=== PATIENT | female | born 1980 ===

== ENCOUNTER 2016-08-09 09:58 | Observation (INO) | payer OTHER ==
--- NOTE | 2016-08-09 10:40 | C.PDOC ---
History Of Present Illness 36 year old patient presents to the ED complaining of persistent abdominal pain for the past 3 days. She complains of constant epigastric and RUQ pain that radiates to the right flank. Patient states the pain is worse after eating. Patient also complains of nausea. Patient had a Tmax fever of 104 2 days ago which has now resolved. She was evaluated at [facility] for generalized abdominal pain. Patient's CT showed an ovarian cyst. Patient is s/p a pelvic ultrasound that showed "ruptured cyst with ascites." The pain resolved with Percocet. Initially, the patient had lower abdominal pain which is now much improved. The epigastric pain is persistent. Patient denies fever, vomiting , diarrhea, headache or dizziness. PERSIST ABD PAIN X 3 DAYS. EPIG/RUQ, RADIATION R FLANK CONSTANT. WORSE @ EATING +NAUSEA. TM 104 2 DAYS AGO, NOW RESOLVED. EVAL @ [facility] FOR GEN ABD PAIN. PS CT = OVARIAN CYST. S/P PELVIC US = "RUPTURED CYST W ASCITES". PAIN RESOLVED W PERCOCET. INITIALLY W LOWER ABD PAIN NOW MUCH IMPROVED. EPIG PAIN PERSIST. EXAM MILD DIST NONTOXIC ABD +EPIG/RUQ TEND MILD SOFT NO R/G REMAINDER NEG Time Seen by Provider: 08/09/16 10:22 Chief Complaint (Nursing): Abdominal Pain History Per: Patient History/Exam Limitations: no limitations Onset/Duration Of Symptoms: Days (3) Current Symptoms Are (Timing): Still Present Context: Other Severity: Mild Pain Scale Rating Of: 3 Location Of Pain/Discomfort: RUQ, Epigastric Radiation Of Pain To:: Flank (right) Quality Of Discomfort: "Pain" Associated Symptoms: Nausea Alleviating Factors: None Last Bowel Movement: Today Recent travel outside of the [place]: No Abnormal Vaginal Bleeding: No Past Medical History Reviewed: Historical Data, Nursing Documentation, Vital Signs Vital Signs: Last Vital Signs Temp 99.1 F 08/09/16 16:21 Pulse 86 08/09/16 16:21 Resp 17 08/09/16 16:21 BP 117/83 08/09/16 16:21 Pulse Ox 100 08/09/16 16:32 - Medical History PMH: Back Problems Family History: States: Unknown Family Hx - Social History Hx Tobacco Use: No Hx Alcohol Use: No Hx Substance Use: No - Immunization History Hx Tetanus Toxoid Vaccination: No Hx Influenza Vaccination: No Hx Pneumococcal Vaccination: No Review Of Systems Except As Marked, All Systems Reviewed And Found Negative. Constitutional: Negative for: Fever Gastrointestinal: Positive for: Nausea, Abdominal Pain (epigastric and RUQ). Negative for: Vomiting, Diarrhea Musculoskeletal: Positive for: Other (right flank) Neurological: Negative for: Headache, Dizziness Physical Exam - Physical Exam Appears: Non-toxic, Other (mild distress) Skin: Warm, Dry Head: Atraumatic, Normacephalic Eye(s): bilateral: Normal Inspection, EOMI Oral Mucosa: Moist Neck: Normal ROM, Supple Chest: Symmetrical Cardiovascular: Rhythm Regular Respiratory: Normal Breath Sounds, No Rales, No Rhonchi, No Wheezing Gastrointestinal/Abdominal: Soft, Tenderness (mild to epigastric and RUQ), No Guarding, No Rebound Back: Normal Inspection Extremity: Normal ROM Neurological/Psych: Oriented x3 Gait: Steady ED Course And Treatment - Laboratory Results Result Diagrams: 08/09/16 10:56 08/09/16 10:56 Urine POC: Negative ECG: Interpreted By Me ECG Rhythm: Sinus Rhythm ECG Interpretation: Normal Interpretation Of ECG: TWI III Rate From EC O2 Sat by Pulse Oximetry: 100 (room air) Pulse Ox Interpretation: Normal ED OBSERVATION Discharge: Yes Date of observation admission: 08/09/16 Time of observation admission: 10:45 - Observation admission statement Patient is being placed in observation because:: ABD PAIN - Goals of Observation Goals of observation are:: NEG ACUTE ABD, SX IMPROVE - Progress Note Progress Note: 08/09/16 16:11 APPEARS COMFORTABLE NAD. DENIES PRIOR HO ENDOMETRIOSIS. NO S/S ACUTE ABD. ADVISED FU OBGYN AND PMD Disposition Counseled Patient/Family Regarding: Studies Performed, Diagnosis, Need For Followup - Disposition Disposition: HOME/ ROUTINE Disposition Time: 16:32 Condition: IMPROVED - Clinical Impression Clinical Impression: Abdominal pain, Ovarian cyst - Scribe Statement The provider has reviewed the documentation as recorded by the Dinah Sheridan Provider Attestation: All medical record entries made by the Basiaibe were at my direction and personally dictated by me. I have reviewed the chart and agree that the record accurately reflects my personal performance of the history, physical exam, medical decision making, and the department course for this patient. I have also personally directed, reviewed, and agree with the discharge instructions and disposition.
[2016-08-09] MEDS ORDERED: Sodium Chloride 0.9% 1,000 ML IV ONE (10:48)
[2016-08-09 11:03] LABS: BASO % 0.3 % (0.0-2.0); EOS # 0.1 K/uL (0.0-0.7); EOS % 1.1 % (0.0-4.0); HEMATOCRIT 38.4 % (34.0-47.0); LYMPH # 1.3 K/uL (1.0-4.3); MEAN CELL VOLUME 89.7 fL (81.0-99.0); MEAN CORPUSCULAR HEMOGLOBIN 29.5 pg (27.0-31.0); MEAN CORPUSCULAR HGB CONC 32.9 g/dL (33.0-37.0); MEAN PLATELET VOLUME 8.1 fL (7.2-11.7); MONO # 0.6 K/uL (0.0-0.8); MONO % 8.8 % (0.0-10.0); NRBC % 0.1 % (0.0-2.0); RED CELL DISTRIBUTION WIDTH 12.2 % (11.5-14.5); WHITE BLOOD COUNT 6.5 K/uL (4.8-10.8)
[2016-08-09 11:09] LABS: RBC URINE 9 /hpf (0-3); URINE BACTERIA RARE (<OCC); URINE BILIRUBIN NEGATIVE (NEGATIVE); URINE BLOOD 1+ (NEGATIVE); URINE COLOR Yellow (YELLOW); URINE GLUCOSE (UA) NORMAL (Normal); URINE KETONE NEGATIVE (NEGATIVE); URINE LEUKOCYTE ESTERASE NEG Leu/uL (Negative); URINE PROTEIN NEGATIVE (NEGATIVE); URINE UROBILINOGEN NORMAL mg/dL (0.2-1.0); WBC URINE 3 /hpf (0-5)
[2016-08-09 11:12] LABS: CHLORIDE 97 mmol/L (98-107); POTASSIUM 4.1 mmol/L (3.6-5.2); SODIUM 140 mmol/L (132-148)
[2016-08-09 11:14] LABS: GFR AFRICAN-AMERICAN > 60
[2016-08-09 11:15] LABS: ALKALINE PHOSPHATASE 81 U/L (38-126); ALT/SGPT 59 U/L (9-52); AST/SGOT 41 U/L (14-36); BILIRUBIN,TOTAL 1.3 mg/dL (0.2-1.3); BLOOD UREA NITROGEN 8 mg/dL (7-17); CALCIUM 8.8 mg/dl (8.6-10.4); CARBON DIOXIDE 28 mmol/L (22-30); GLUCOSE,RANDOM 98 mg/dL (65-105); TOTAL PROTEIN 8.4 g/dL (6.3-8.3)
--- NOTE | 2016-08-09 11:18 | RAD ---
HISTORY: Abdominal pain. COMPARISON: No prior. TECHNIQUE: Chest PA and lateral FINDINGS: LUNGS: No active pulmonary disease. PLEURA: No significant pleural effusion identified. No pneumothorax apparent. CARDIOVASCULAR: Normal. OSSEOUS STRUCTURES: No significant abnormalities. VISUALIZED UPPER ABDOMEN: Normal. OTHER FINDINGS: None. IMPRESSION: No active disease. Concordant results with the preliminary interpretation rendered by the emergency department physician procedure.
[2016-08-09] MEDS ORDERED: Sodium Chloride 0.9% 1,000 ML ONE (11:45)
--- NOTE | 2016-08-09 13:22 | US ---
HISTORY: Abdominal pain. History of ruptured ovarian cysts. Menstrual status: Regular cycles LMP 07/31/2016 COMPARISON: 03/02/2014. TECHNIQUE: Transabdominal, transvaginal. Real -time technique with 2D, duplex and color Doppler. FINDINGS: UTERUS: Measures 4.4 x 6.9 cm. Normal in size and appearance. No fibroid or other mass lesion seen. ENDOMETRIUM: Measures 5.8 mm in diameter. No ultrasound findings to suggest gestational sac, fluid, debris, mass or polyp or other pathologic process within the endometrium. CERVIX: No cervical abnormality identified. RIGHT OVARY: Measures 1.6 x 3.7 cm. No solid mass. Normal flow. Multiple subcentimeter follicles. Dominant cyst 1.4 x 1.7 cm. LEFT OVARY: Measures 7.7 x 8.1 x 9.5 cm. No solid mass. Normal flow. Well-circumscribed exophytic mass left adnexa. Differential considerations include, exophytic debris laden cyst 4.5 x 7.9 x 7.9 cm. Alternatively this could represent "Chocolate cyst" . Clinically, is there a history of endometriosis? The findings conceivably represent large endometrioma. FREE FLUID: No significant free fluid noted. OTHER FINDINGS: None. IMPRESSION: Complex cysts, overall appearance of chocolate cyst left adnexa suggests endometrioma. Unremarkable uterus and endometrial echo complex. Unremarkable right ovary with multiple follicular cysts.
--- NOTE | 2016-08-09 13:23 | US ---
HISTORY: RUQ abd pain COMPARISON: 03/02/2014. TECHNIQUE: Sonographic evaluation of the right upper quadrant of the abdomen. FINDINGS: LIVER: Measures 18.2 cm in length. Patent portal vein. Portal venous flow: Hepatopetal. Unremarkeable echogenicity of the liver parenchyma. No mass. No intrahepatic bile duct dilatation. GALLBLADDER: Unremarkable. No gallstones. COMMON BILE DUCT: Measures 5.3 mm. No stones. No dilatation. PANCREAS: Unremarkable as visualized. No mass. No ductal dilatation. RIGHT KIDNEY: Measures 12.4 x 4.3 cm in length. Normal echogenicity. No calculus, mass, or hydronephrosis. AORTA: No aneurysmal dilatation. IVC: Unremarkable. OTHER FINDINGS: None . IMPRESSION: No acute findings related to/accounting for the clinical presentation. No significant interval change compared to the prior examination(s).
[2016-08-09] MEDS ORDERED: Iohexol 300 100 ML IJ ONE (14:19)
--- NOTE | 2016-08-09 16:17 | CT ---
PROCEDURE: CT Abdomen and Pelvis with contrast HISTORY: Abdominal pain. COMPARISON: August 09, 2016. Pelvic ultrasound TECHNIQUE: Contrast dose: 100 cc Omnipaque 350. Radiation dose: Total exam DLP = 747.44 mGy-cm. This CT exam was performed using one or more of the following dose reduction techniques: Automated exposure control, adjustment of the mA and/or kV according to patient size, and/or use of iterative reconstruction technique. FINDINGS: LOWER THORAX: Unremarkable. LIVER: Hepatic steatosis. No focal masses. No intrahepatic bile duct dilatation or perihepatic ascites. GALLBLADDER AND BILE DUCTS: Unremarkable. PANCREAS: Unremarkable. No gross lesion or ductal dilatation. SPLEEN: Top-normal spleen. Orthogonal measurements 8.1 x 11.2 cm ADRENALS: Unremarkable. No mass. KIDNEYS AND URETERS: Unremarkable. No hydronephrosis. No solid mass. VASCULATURE: Unremarkable. No aortic aneurysm. BOWEL: Unremarkable. No obstruction. No gross mural thickening. APPENDIX: The appendix is well visualized. The tip of the appendix is partially obscured by adjacent bowel. However the patient does not have right lower quadrant/ pelvic pain at the current time and does not have an elevated white count, information kindly provided by the attending physician in the emergency department. PERITONEUM: Unremarkable. No free fluid. No free air. LYMPH NODES: Unremarkable. No enlarged lymph nodes. BLADDER: Unremarkable. REPRODUCTIVE: Dominant left adnexal cyst 4.6 x 5.3 cm corresponding findings on recent ultrasound. Simple cyst right adnexa corresponds to findings on recent ultrasound. BONES: No acute fracture. OTHER FINDINGS: None. IMPRESSION: No acute findings to account for the clinical presentation of upper abdominal pain. CT correlates to findings pelvic ultrasound. Communication of results: I discussed findings directly with the attending physician in the emergency department Dr. Baxter.
[2016-08-09 16:21] VITALS: BP 117/83; PULSE 86; RESP 17; TEMP 99.1
[2016-08-09 16:32] VITALS: O2SAT 100
--- NOTE | 2016-08-10 17:12 | CARD ---
APPROVED REPORT EKG Measurement Heart [id number] OR [id number] <Conclusion> Normal sinus rhythm Right axis deviation Abnormal ECG
== END 2016-08-09 16:32 | disposition home or self-care (01) ==
LOC: C.ER 09:58 → C.9OBSV 10:45
PROVIDERS: ADMIT Emergency Medicine; ATTEND Emergency Medicine
DX: N83.209 Unspecified ovarian cyst, unspecified side (principal); R10.9 Unspecified abdominal pain
CPT/HCPCS: 36415; 71020; 74177; 76705; 76830; 76856; 80053; 81001; 83690; 85025; 94770; 96374; G0378; J2270; J2405; J7040; Q9967